=== PATIENT | female | born 1960 | race Caucasian/White ===

== ENCOUNTER 2016-11-13 19:36 | Emergency (ER) | payer OTHER ==
[~2016-11-13] VITALS: Ht 157.5 cm; Wt 49.0 kg
[~2016-11-13 19:36] MED LIST: ALBU8.5H6 INH; CEFU500T PO; CLON1TAB3 PO; FENT1PAT91 TD; LEVO500T59 PO; METR500T PO; OXYC5TAB PO; lipitor
[2016-11-13] MEDS ORDERED: METOCLOPRAMIDE HCL 10 MG/2 ML VIAL. IV ONE (21:15)
[2016-11-13] MEDS ORDERED: diphenhydrAMINE 50 MG/ML VIAL IVP ONE (21:15)
[2016-11-13] MEDS ORDERED: IV NORMAL SALINE 1000ML BAG 1,000 ML IV SCH (21:15)
[2016-11-13] MEDS ORDERED: fentaNYL PF VIAL 100 MCG/2 ML VIAL IV ONE (21:15)
[2016-11-13 21:18] LABS: BASO % 1 % (0-3); EOS % 2 % (0-3); HEMATOCRIT 47.4 % (36.0-47.0); HEMOGLOBIN 15.8 g/dL (12.0-15.5); LYMPH # 2.7 x10^3/uL (1.0-4.8); LYMPH % 42 % (24-48); MEAN CORPUSCULAR HEMOGLOBIN 33 pg (25-35); MEAN CORPUSCULAR HGB CONC 33 g/dL (31-37); MEAN CORPUSCULAR VOLUME 98 fL (79-100); MONO % 4 % (0-9); NEUT % 52 % (31-73); PLATELET COUNT 128 x10^3/uL (140-400); RED BLOOD COUNT 4.84 x10^6/uL (3.50-5.40); RED CELL DISTRIBUTION WIDTH 14.4 % (11.5-14.5); WHITE BLOOD COUNT 6.5 x10^3/uL (4.0-11.0)
[2016-11-13 21:29] LABS: CREATININE 0.9 mg/dL (0.6-1.0); GFR 64.8; POTASSIUM 3.5 mmol/L (3.5-5.1)
[2016-11-13 21:35] LABS: ALBUMIN 3.8 g/dL (3.4-5.0); ALBUMIN/GLOBULIN RATIO 1.1 (1.0-1.7); MAGNESIUM 1.7 mg/dL (1.8-2.4); TOTAL BILIRUBIN 0.4 mg/dL (0.2-1.0); TOTAL PROTEIN 7.2 g/dL (6.4-8.2)
[2016-11-13 21:42] LABS: BILIRUBIN,URINE NEGATIVE (NEG); GLUCOSE,URINE NEGATIVE (NEG); NITRITE,URINE NEGATIVE (NEG); PROTEIN,URINE NEGATIVE (NEG-TRACE)
[2016-11-13 21:52] LABS: BACTERIA,URINE FEW /HPF (0-FEW); RBC,URINE 0 /HPF (0-2); SQUAMOUS EPITHELIAL CELL,UR FEW /LPF
--- NOTE | 2016-11-13 22:41 | RAD ---
CT HEAD INDICATION: Headache COMPARISON: None Available. TECHNIQUE: 5 mm contiguous axial images were obtained from the skull base to the vertex in both bone and soft tissue algorithm. Exposure: One or more of the following individualized dose reduction techniques were utilized for this examination: 1. Automated exposure control 2. Adjustment of the mA and/or kV according to patient size 3. Use of iterative reconstruction technique FINDINGS: No abnormal attenuation within the brain parenchyma. No evidence of acute intracranial hemorrhage. No extra-axial fluid collections. No mass effect or midline shift. Ventricular size is appropriate. Basal cisterns are patent. No fractures identified.Fields-white differentiation is preserved.Globes and orbits are within normal limits. Paranasal sinuses and mastoid air cells are clear. IMPRESSION: Unremarkable CT examination of the head without contrast, as above. Specifically, no evidence of an acute intracranial abnormality. Electronically signed by: Myles Obregon MD (11/13/2016 10:37 PM)
[2016-11-13 22:57] VITALS: BP 120/69
--- NOTE | 2016-11-13 23:38 | PHYS DOC ---
Past Medical History Past Medical History: Arthritis, COPD, High Cholesterol, Lung Disease, Migraines, Pneumonia Additional Past Medical Histor: chronic back and knee pain (chronic pain syndrome), emphysema Past Surgical History: Cholecystectomy, Hysterectomy, Tonsillectomy, Other Additional Past Surgical Histo: R & L knee surgeries Alcohol Use: None Drug Use: None Adult General Chief Complaint Chief Complaint: HEADACHE HPI HPI Patient is a 56 year old female who presents with complaint of headache. Patient states that her symptoms started approximately 2 hours prior to arrival. Patient states that she has history of migraine headaches and states that her symptoms at this time are similar to previous migraine headaches. Patient states that the pain is located throughout her entire scalp and forehead. The patient states that she started to experience left-sided facial and left upper extremity numbness associated with her headache. Patient states that currently this is not present. Patient states that in the past she has had numbness along the right side of her face but never on the left side. The patient called her primary physician, Dr. Salcido, and she was instructed to come to the emergency department for evaluation and possible need for CT imaging. Patient currently rates her pain as 5 out of 10. Patient states that the pain is throbbing. Patient has not taken any medications at home for her symptoms. Patient does admit to light sensitivity and nausea. Review of Systems Review of Systems Constitutional: Denies fever or chills [] Eyes: Light sensitivity, denies change in visual acuity, redness, or eye pain [] HENT: Denies nasal congestion or sore throat [] Respiratory: Denies cough or shortness of breath [] Cardiovascular: Denies chest pain or edema [] GI: Nausea, denies abdominal pain, vomiting, bloody stools or diarrhea [] : Denies dysuria or hematuria [] Musculoskeletal: Denies back pain or joint pain [] Integument: Denies rash or skin lesions [] Neurologic: Headache, left-sided facial and left upper extremity numbness currently resolved [] Current Medications Current Medications Current Medications Medications (Trade) Dose Ordered Sig/Nayeli Start Time Stop Time Status Last Admin Dose Admin Diphenhydramine HCl (Benadryl) 25 mg 1X ONCE 11/13/16 21:15 11/13/16 21:16 DC 11/13/16 21:27 25 MG Fentanyl Citrate (Fentanyl 2ml Vial) 50 mcg 1X ONCE 11/13/16 21:15 11/13/16 21:16 DC 11/13/16 21:28 50 MCG Metoclopramide HCl (Reglan) 10 mg 1X ONCE 11/13/16 21:15 11/13/16 21:16 DC 11/13/16 21:28 10 MG Sodium Chloride 1,000 ml @ 1,000 mls/hr Q1H 11/13/16 21:15 11/13/16 22:14 DC 11/13/16 21:24 1,000 MLS/HR Allergies Allergies Allergies Coded Allergies Type Severity Reaction Last Updated Verified methylprednisolone Allergy Intermediate Hives 12/24/13 Yes morphine Allergy Intermediate hives 12/23/13 Yes ondansetron Allergy Unknown 12/28/13 Yes azithromycin Adverse Reaction Intermediate vomiting 12/23/13 Yes doxycycline Adverse Reaction Intermediate vomiting 12/23/13 Yes Physical Exam Physical Exam Constitutional: Alert, afebrile, appears in mild to moderate discomfort. [] HENT: Normocephalic, atraumatic, bilateral external ears normal, oropharynx moist, no oral exudates, nose normal. [] Eyes: PERRLA, EOMI, conjunctiva normal, no discharge. [] Neck: Normal range of motion, no tenderness, supple, no stridor. [] Cardiovascular:Heart rate regular rhythm, no murmur [] Lungs & Thorax: Bilateral breath sounds clear to auscultation [] Abdomen: Bowel sounds normal, soft, no tenderness, no masses, no pulsatile masses. [] Skin: Warm, dry, no erythema, no rash. [] Back: No tenderness, no CVA tenderness. [] Extremities: No tenderness, no cyanosis, no clubbing, ROM intact, no edema. [] Neurologic: Alert and oriented X 3, normal motor function, normal sensory function, no focal deficits noted. [] Current Patient Data Vital Signs Vital Signs Date Time Temp Pulse Resp B/P (MAP) Pulse Ox O2 Delivery O2 Flow Rate FiO2 11/13/16 22:57 73 19 120/69 (86) 97 11/13/16 21:28 Room Air 11/13/16 19:57 98.5 98.5 Lab Values Laboratory Tests Test 11/13/16 19:55 11/13/16 21:17 White Blood Count 6.5 x10^3/uL (4.0-11.0) Red Blood Count 4.84 x10^6/uL (3.50-5.40) Hemoglobin 15.8 g/dL (12.0-15.5) H Hematocrit 47.4 % (36.0-47.0) H Mean Corpuscular Volume 98 fL (79-100) Mean Corpuscular Hemoglobin 33 pg (25-35) Mean Corpuscular Hemoglobin Concent 33 g/dL (31-37) Red Cell Distribution Width 14.4 % (11.5-14.5) Platelet Count 128 x10^3/uL (140-400) L Neutrophils (%) (Auto) 52 % (31-73) Lymphocytes (%) (Auto) 42 % (24-48) Monocytes (%) (Auto) 4 % (0-9) Eosinophils (%) (Auto) 2 % (0-3) Basophils (%) (Auto) 1 % (0-3) Neutrophils # (Auto) 3.3 x10^3uL (1.8-7.7) Lymphocytes # (Auto) 2.7 x10^3/uL (1.0-4.8) Monocytes # (Auto) 0.3 x10^3/uL (0.0-1.1) Eosinophils # (Auto) 0.1 x10^3/uL (0.0-0.7) Basophils # (Auto) 0.0 x10^3/uL (0.0-0.2) Sodium Level 143 mmol/L (136-145) Potassium Level 3.5 mmol/L (3.5-5.1) Chloride Level 105 mmol/L (98-107) Carbon Dioxide Level 29 mmol/L (21-32) Anion Gap 9 (6-14) Blood Urea Nitrogen 6 mg/dL (7-20) L Creatinine 0.9 mg/dL (0.6-1.0) Estimated GFR (Cockcroft-Gault) 64.8 BUN/Creatinine Ratio 7 (6-20) Glucose Level 121 mg/dL (70-99) H Calcium Level 9.0 mg/dL (8.5-10.1) Magnesium Level 1.7 mg/dL (1.8-2.4) L Total Bilirubin 0.4 mg/dL (0.2-1.0) Aspartate Amino Transferase (AST) 23 U/L (15-37) Alanine Aminotransferase (ALT) 27 U/L (14-59) Alkaline Phosphatase 110 U/L (46-116) Total Protein 7.2 g/dL (6.4-8.2) Albumin 3.8 g/dL (3.4-5.0) Albumin/Globulin Ratio 1.1 (1.0-1.7) Urine Collection Type Unknown Urine Color Dk yellow Urine Clarity Cloudy Urine pH 5.0 Urine Specific Perkins >=1.030 Urine Protein Negative mg/dL (NEG-TRACE) Urine Glucose (UA) Negative mg/dL (NEG) Urine Ketones (Stick) Trace mg/dL (NEG) Urine Blood Negative (NEG) Urine Nitrite Negative (NEG) Urine Bilirubin Negative (NEG) Urine Urobilinogen Dipstick 1.0 mg/dL (0.2 mg/dL) Urine Leukocyte Esterase Moderate (NEG) Urine RBC 0 /HPF (0-2) Urine WBC 1-4 /HPF (0-4) Urine Squamous Epithelial Cells Few /LPF Urine Bacteria Few /HPF (0-FEW) Urine Hyaline Casts Many /HPF Urine Mucus Marked /LPF Laboratory Tests 11/13/16 19:55 Laboratory Tests 11/13/16 19:55 EKG EKG Not performed [] Radiology/Procedures Radiology/Procedures [facility] [address] [place] [address] IMAGING REPORT Signed PATIENT: CARLINE VIVAR ACCOUNT: [id number] : 1960 LOCATION: ER AGE: 56 SEX: F EXAM STATUS: REG ER ORD. PHYSICIAN: MARIUM PARR MD REASON: headache, numbness currently resolved. PROCEDURE: CT HEAD WO CONTRAST CT HEAD INDICATION: Headache COMPARISON: None Available. TECHNIQUE: 5 mm contiguous axial images were obtained from the skull base to the vertex in both bone and soft tissue algorithm. Exposure: One or more of the following individualized dose reduction techniques were utilized for this examination: 1. Automated exposure control 2. Adjustment of the mA and/or kV according to patient size 3. Use of iterative reconstruction technique FINDINGS: No abnormal attenuation within the brain parenchyma. No evidence of acute intracranial hemorrhage. No extra-axial fluid collections. No mass effect or midline shift. Ventricular size is appropriate. Basal cisterns are patent. No fractures identified.Ifelds-white differentiation is preserved.Globes and orbits are within normal limits. Paranasal sinuses and mastoid air cells are clear. IMPRESSION: Unremarkable CT examination of the head without contrast, as above. Specifically, no evidence of an acute intracranial abnormality. Electronically signed by: Myles Obregon MD (11/13/2016 10:37 PM) DICTATED and SIGNED BY: MYLES OBREGON MD DATE: 11/13/162234 CC: JOSUE SALCIDO MD; MARIUM PARR MD ~ [] Course & Med Decision Making Course & Med Decision Making Pertinent Labs and Imaging studies reviewed. (See chart for details) I spoke with patient's primary physician, Dr. Salcido who asked that we contact a head CT on the patient due to her transient facial numbness. This was completed in the emergency department and was interpreted as negative. Patient was started on IV fluids, fentanyl, Reglan, and Benadryl. On reevaluation, patient states her symptoms have resolved and patient is feeling much better at this time. Advise follow-up with Dr. Salcido in 3-4 days for reevaluation and return to emergency department for any worsening symptoms. Patient voiced understanding and in agreement with treatment plan. Dragon Disclaimer Dragon Disclaimer This electronic medical record was generated, in whole or in part, using a voice recognition dictation system. Departure Departure Impression: Primary Impression: Migraine headache Disposition: 01 HOME, SELF-CARE Condition: IMPROVED Referrals: JOSUE SALCIDO MD (PCP) Patient Instructions: Migraine Headache Additional Instructions: Follow-up with your primary doctor in 3-4 days. Return to the emergency department for any worsening symptoms. Problem Qualifiers Primary Impression: Migraine headache Migraine type: unspecified Status migrainosus presence: without status migrainosus Intractability: not intractable Qualified Codes: G43.909 - Migraine, unspecified, not intractable, without status migrainosus MARIUM PARR MD Nov 13, 2016 23:38
== END 2016-11-13 23:45 | disposition home or self-care (01) ==
LOC: ER 19:36
DX: G43.909 Migraine, unspecified, not intractable, without status migrainosus (principal); E78.00 Pure hypercholesterolemia, unspecified; G89.4 Chronic pain syndrome; M19.90 Unspecified osteoarthritis, unspecified site; J43.9 Emphysema, unspecified; Z90.710 Acquired absence of both cervix and uterus; Z90.49 Acquired absence of other specified parts of digestive tract; Z88.1 Allergy status to other antibiotic agents; Z88.5 Allergy status to narcotic agent; Z88.8 Allergy status to other drugs, medicaments and biological substances
CPT/HCPCS: 36415; 70450; 80053; 81001; 83735; 85027; 87086; 96361; 96374; 96375; 99285; J1200; J2765; J3010; J7030

== ENCOUNTER 2017-02-06 00:31 | Emergency (ER) | payer OTHER ==
[~2017-02-06 00:31] MED LIST changes: -OXYC5TAB PO; +OXYC5TAB95 PO
[2017-02-06 00:35] VITALS: BP 126/78
--- NOTE | 2017-02-06 00:45 | PHYS DOC ---
Past Medical History Past Medical History: Arthritis, COPD, High Cholesterol, Lung Disease, Migraines, Pneumonia Additional Past Medical Histor: chronic back and knee pain (chronic pain syndrome), emphysema Past Surgical History: Cholecystectomy, Hysterectomy, Tonsillectomy, Other Additional Past Surgical Histo: R & L knee surgeries Alcohol Use: None Drug Use: None Adult General Chief Complaint Chief Complaint: LOWER EXT PAIN [facility] HPI Patient is a 56 year old female presents to the ED complaining of bilateral foot pain over the last few months. States the pain feels like tingling on the bottom of her feet. Patient denies any history of diabetes. States she takes medicine for high blood pressure and admits to have been told in the past that she has neuropathic pain in her legs and takes gabapentin at home. Patient states the gabapentin does help with her pain. Denies trauma, weakness, difficulty walking, calf pain, recent travel, chest pain, shortness of breath, abdominal pain, nausea/vomiting, dizziness or syncope. Review of Systems Review of Systems Constitutional: Denies fever or chills [] Eyes: Denies change in visual acuity, redness, or eye pain [] HENT: Denies nasal congestion or sore throat [] Respiratory: Denies cough or shortness of breath [] Cardiovascular: No additional information not addressed in HPI [] GI: Denies abdominal pain, nausea, vomiting, bloody stools or diarrhea [] : Denies dysuria or hematuria [] Musculoskeletal: Denies back pain. Complains of bilateral lower leg pain. [] Integument: Denies rash or skin lesions [] Neurologic: Denies headache, focal weakness or sensory changes [] Endocrine: Denies polyuria or polydipsia [] Allergies Allergies Allergies Coded Allergies Type Severity Reaction Last Updated Verified methylprednisolone Allergy Intermediate Hives 12/24/13 Yes morphine Allergy Intermediate hives 12/23/13 Yes ondansetron Allergy Unknown 12/28/13 Yes azithromycin Adverse Reaction Intermediate vomiting 12/23/13 Yes doxycycline Adverse Reaction Intermediate vomiting 12/23/13 Yes Physical Exam Physical Exam Constitutional: Well developed, well nourished, no acute distress, non-toxic appearance. [] HENT: Normocephalic, atraumatic, bilateral external ears normal, oropharynx moist, no oral exudates, nose normal. [] Eyes: PERRLA, EOMI, conjunctiva normal, no discharge. [] Neck: Normal range of motion, no tenderness, supple, no stridor. [] Cardiovascular:Heart rate regular rhythm, no murmur [] Lungs & Thorax: Bilateral breath sounds clear to auscultation [] Abdomen: Bowel sounds normal, soft, no tenderness, no masses, no pulsatile masses. [] Skin: Warm, dry, no erythema, no rash. [] Back: No tenderness, no CVA tenderness. [] Extremities: No tenderness, no cyanosis, no clubbing, ROM intact, no edema. No overlying skin changes. [] Neurologic: Alert and oriented X 3, normal motor function, normal sensory function, no focal deficits noted. [] Psychologic: Affect normal, judgement normal, mood normal. [] Current Patient Data Vital Signs Vital Signs Date Time Temp Pulse Resp B/P (MAP) Pulse Ox O2 Delivery O2 Flow Rate FiO2 02/06/17 00:35 97.9 56 18 126/78 (94) 95 Room Air 97.9 EKG EKG [] Radiology/Procedures Radiology/Procedures [] Course & Med Decision Making Course & Med Decision Making Pertinent Labs and Imaging studies reviewed. (See chart for details) []Normal examination of bilateral lower extremities. FROM, no tenderness, 2+ distal pulses, no calf tenderness, normal cap refill. Patient is able to ambulate without pain. Discussed follow-up with orthopedics for nerve conduction tests and further evaluation this week. Patient states she will see her PCP and get a referral. Provided contact information/education for orthopedics as well. Discussed reasons to return to the ED. Patient and family understand and agrees with plan. Dragon Disclaimer Dragon Disclaimer This electronic medical record was generated, in whole or in part, using a voice recognition dictation system. Departure Departure Impression: Primary Impression: Foot pain Disposition: ADMITTED INPATIENT Condition: STABLE Referrals: JOSUE KIRKLAND MD (PCP) DIANE SINGER MD Patient Instructions: Pain, Neuropathic ROSY CASTILLO Feb 06, 2017 00:45
== END 2017-02-06 00:52 | disposition other institution (70) ==
LOC: ER 00:31
DX: M79.671 Pain in right foot (principal); M79.672 Pain in left foot; E78.00 Pure hypercholesterolemia, unspecified; G89.4 Chronic pain syndrome; J43.9 Emphysema, unspecified; G43.909 Migraine, unspecified, not intractable, without status migrainosus; M19.90 Unspecified osteoarthritis, unspecified site; Z90.49 Acquired absence of other specified parts of digestive tract; Z90.710 Acquired absence of both cervix and uterus; Z98.890 Other specified postprocedural states; Z88.1 Allergy status to other antibiotic agents; Z88.5 Allergy status to narcotic agent; Z88.8 Allergy status to other drugs, medicaments and biological substances
CPT/HCPCS: 99285-25

== ENCOUNTER 2017-02-24 13:14 | Emergency (ER) | payer OTHER ==
[~2017-02-24] VITALS: Ht 157.5 cm; Wt 49.0 kg
--- NOTE | 2017-02-24 14:51 | PHYS DOC ---
Past Medical History Past Medical History: Arthritis, COPD, High Cholesterol, Lung Disease, Migraines, Pneumonia Additional Past Medical Histor: chronic back and knee pain (chronic pain syndrome), emphysema Past Surgical History: Cholecystectomy, Hysterectomy, Tonsillectomy, Other Additional Past Surgical Histo: R & L knee surgeries Alcohol Use: None Drug Use: None Adult General Chief Complaint Chief Complaint: MECHANICAL FALL HPI HPI Patient is a 56 year old female who presents after a fall last night. The patient states that she was standing on a stage, she wasn't aware how close to the edge she was, she backed off the stage and fell onto a wood floor. The stage was 2-3 feet high. She's not sure how she landed. She denies head injury. She primarily complains of pain in the left wrist and pain of the right lower leg just below the right knee. Her back is sore but only about a 3/10. Patient takes daily opiates for chronic pain. She has "chronic Lyme" and also knee and back pain. She has a fentanyl patch 75 g and she also has a prescription for oxycodone 30 mg every 12 hours. She took one last night and one this morning. They're not helping. PCP Dr. Luz Kirkland Review of Systems Review of Systems Constitutional: Denies fever or chills [] Respiratory: She has COPD and her cough is baseline Cardiovascular: Denies chest pain GI: Denies vomiting Musculoskeletal: As in history of present illness Integument: Denies rash or skin lesions [] Neurologic: Denies headache Allergies Allergies Allergies Coded Allergies Type Severity Reaction Last Updated Verified methylprednisolone Allergy Intermediate Hives 12/24/13 Yes morphine Allergy Intermediate hives 12/23/13 Yes ondansetron Allergy Unknown 12/28/13 Yes azithromycin Adverse Reaction Intermediate vomiting 12/23/13 Yes doxycycline Adverse Reaction Intermediate vomiting 12/23/13 Yes Physical Exam Physical Exam Constitutional: Well developed, well nourished, alert, mentating normally HENT: Normocephalic, atraumatic, nose normal. [] Eyes: conjunctiva normal, no discharge. [] Neck: Normal range of motion, no tenderness Skin: Warm, dry, no erythema, no rash. [] Back: No tenderness, no skin abnormalities noted Extremities: Left upper extremity: Clavicle, shoulder, upper arm, elbow are unremarkable. Wrist has mild generalized swelling and tenderness over the dorsal aspect of the wrist and the dorsal aspect of the proximal hand. Fingers are without swelling or deformity. Right upper extremity unremarkable. Left lower extremity unremarkable. Right lower extremity: Knee joint is without swelling or tenderness, full range of motion. There is mild swelling and tenderness pretibial just below the knee. Quadriceps patellar tendon is intact. Ankle and foot are unremarkable. Neurologic: Alert and oriented X 3, normal motor function, no focal deficits noted. [] Current Patient Data Vital Signs Vital Signs Date Time Temp Pulse Resp B/P (MAP) Pulse Ox O2 Delivery O2 Flow Rate FiO2 02/24/17 15:00 63 18 91 02/24/17 14:16 98.3 126/78 (94) Room Air 98.3 EKG EKG [] Radiology/Procedures Radiology/Procedures Two-view x-ray of the right tib-fib read by me. No bony abnormality. Three-view x-ray of the left wrist read by me. No bony abnormality.[] Course & Med Decision Making Course & Med Decision Making Pertinent Labs and Imaging studies reviewed. (See chart for details) 56-year-old female who had a fall last night and is having left wrist and right lower leg pain today. X-rays negative for bony abnormality. She was given a Velcro wrist splint for comfort. She already has pain relievers at home. See instructions for plan. [] Dragon Disclaimer Dragon Disclaimer This electronic medical record was generated, in whole or in part, using a voice recognition dictation system. Departure Departure Impression: Primary Impression: Contusion of left wrist, initial encounter Additional Impression: Contusion of right lower leg, initial encounter Disposition: 01 HOME, SELF-CARE Condition: STABLE Referrals: JOSUE KIRKLAND MD (PCP) Patient Instructions: Contusion, [id number] Additional Instructions: Today, x-rays of your left wrist and hand, and right knee and lower leg, do not show any broken bones. Ice 15-20 minutes out of every 1-2 hours as needed for swelling and pain. You may wear the wrist splint as needed for pain, once you are getting better you can stop wearing a. If you're still having pain in one to 2 weeks, follow-up with your primary care doctor for recheck. Problem Qualifiers JACQUIE DENTON MD Feb 24, 2017 14:51
--- NOTE | 2017-02-24 14:56 | RAD ---
Left wrist, 3 views, 02/24/2017: History: Fall, pain and swelling No fracture or dislocation is identified. There is mild soft tissue swelling. IMPRESSION: No acute bony abnormality is detected.
--- NOTE | 2017-02-24 14:59 | RAD ---
Right tibia and fibula, 2 views, 02/24/2017: History: Fall, pain and swelling There appears to be mild patchy bony demineralization. No fracture is identified. The soft tissues are unremarkable. IMPRESSION: No acute bony abnormality is detected.
[2017-02-24 15:00] VITALS: BP 113/66
== END 2017-02-24 15:09 | disposition home or self-care (01) ==
LOC: ER 13:14
DX: S60.212A Contusion of left wrist, initial encounter (principal); S80.11XA Contusion of right lower leg, initial encounter; E78.00 Pure hypercholesterolemia, unspecified; G43.909 Migraine, unspecified, not intractable, without status migrainosus; M19.90 Unspecified osteoarthritis, unspecified site; G89.4 Chronic pain syndrome; J43.9 Emphysema, unspecified; Z90.710 Acquired absence of both cervix and uterus; Z90.49 Acquired absence of other specified parts of digestive tract; W17.89XA Other fall from one level to another, initial encounter; Y93.89 Activity, other specified; Y99.8 Other external cause status; Y92.89 Other specified places as the place of occurrence of the external cause
CPT/HCPCS: 29125; 73110; 73590; 99284-25

== ENCOUNTER → 2018-06-22 | Outpatient (CLI) | payer OTHER ==
[2017-05-24 11:00] VITALS: BP 99/59
[~2018-06-22] MED LIST changes: +ATOR10TA60 PO; +CLON1TAB11 PO; -CLON1TAB3 PO; +CYCL10TA2 PO; +LOPE2CAP PO; +OXYC5TAB4 PO; -OXYC5TAB95 PO
--- NOTE | 2018-06-22 15:11 | KCIC ---
MR of the right shoulder HISTORY: Right shoulder pain chronically, prior surgery x2. COMPARISON: March 08, 2016. FINDINGS: There apparently has been outer clavicle resection and subacromial decompression since previous exam. Mild thickening and signal within the rotator cuff compatible with tendinosis. No measurable rotator cuff rupture or retraction. Trace subdeltoid bursal effusion. No significant joint effusion. Mild degenerative changes at the glenohumeral joint. Previously seen signal at the base of the superior labrum is less well seen. Mild signal at the base of the posterior inferior labrum is less well seen today. No definite new labral tear is suggested on today's exam. Biceps tendon is intact. No bone lesion. No acute fracture. No acute soft tissue abnormality. IMPRESSION: 1. Rotator cuff tendinosis, no measurable tear. 2. Previously seen areas of labral signal or less apparent on today's exam. Electronically signed by: Vipin Price MD (06/22/2018 3:07 PM) [id number]
== END | disposition home or self-care (01) ==
LOC: KCIC MRI 13:02
PROVIDERS: ATTEND Orthopaedic Surgery
DX: M75.81 Other shoulder lesions, right shoulder (principal)
CPT/HCPCS: 73221

== ENCOUNTER → 2019-01-02 | Outpatient (CLI) | payer MEDICAID ==
[2017-05-24 11:00] VITALS: BP 99/59
[~2019-01-02] MED LIST changes: -CLON1TAB11 PO; +CLONAZEPAM1 MG PO; +CONTRAST GIVEN. MC PRN; +IOHEXOL 240 MG/ML 50ML VIAL. PO ONE; +IOHEXOL 300 MG/ML 100ML VIAL. IV ONE
--- NOTE | 2019-01-02 16:31 | RAD ---
CHEST PA LATERAL CLINICAL INDICATION: Weight loss. COMPARISON: 05/23 FINDINGS: Heart is normal in size. Lungs are clear. No pneumothorax or pleural effusion. Visualized bony thorax within normal limits. IMPRESSION: No acute pulmonary process. Electronically signed by: Deuce Berrios DO (01/02/2019 4:28 PM) [facility]
--- NOTE | 2019-01-03 07:56 | RAD ---
PQRS Compliance statement: One or more of the following individualized dose reduction techniques were utilized for this examination: 1. Automated exposure control. 2. Adjustment of the mA and/or kV according to patient size. 3. Use of iterative reconstruction technique. Indication:Weight loss abdominal pain. TECHNIQUE: CT abdomen and pelvis with IV contrast with multiplanar reformats. COMPARISON: None FINDINGS: Heart is normal in size. No pericardial or pleural effusion. Clear lung bases. Liver, spleen, pancreas, adrenals within normal limits. Status post cholecystectomy. Dilated CBD likely secondary to reservoir effect from cholecystectomy. No nephrolithiasis or hydronephrosis. No enlarged retroperitoneal or pelvic adenopathy. Moderate scattered atherosclerotic plaque is seen in the abdominal aorta and bilateral iliac arteries. No free pelvic fluid or ascites. No enlarged retroperitoneal or pelvic adenopathy. No bowel obstruction. Appendix is not visualized. No right lower quadrant inflammatory changes. Status post hysterectomy. Urinary bladder demonstrates no radiopaque stones. No pneumoperitoneum. No suspicious bony lesion. IMPRESSION: No acute findings. Electronically signed by: Deuce Berrios DO (01/03/2019 7:53 AM) [facility]
== END | disposition home or self-care (01) ==
LOC: CT 15:33
PROVIDERS: ATTEND Internal Medicine Gastroenterology
DX: I70.0 Atherosclerosis of aorta (principal); I70.8 Atherosclerosis of other arteries; Z90.49 Acquired absence of other specified parts of digestive tract; Z90.710 Acquired absence of both cervix and uterus; Z87.891 Personal history of nicotine dependence
CPT/HCPCS: 71046; 74177; Q9966; Q9967

== ENCOUNTER → 2019-01-16 | Outpatient (CLI) | payer MEDICAID ==
[2017-05-24 11:00] VITALS: BP 99/59
[~2019-01-16] MED LIST changes: -IOHEXOL 240 MG/ML 50ML VIAL. PO ONE
--- NOTE | 2019-01-17 08:35 | KCIC ---
CLINICAL HISTORY: . COMPARISON: none TECHNIQUE:CT angiography of the abdomen was performed following the administration of IV contrast. Axial, coronal and sagittal reformatted images were obtained. 3-D, MIP images were generated. PQRS compliance statement - One or more of the following individualized dose reduction techniques were utilized for this study: 1. Automated exposure control 2. Adjustment of the mA and/or kV according to patient size 3. Use of iterative reconstruction technique FINDINGS: CT ANGIOGRAM: Aorta: Dense atherosclerotic calcifications with atheromatous plaque are seen intermittently throughout the aorta with intermittent luminal narrowing measuring <30 percent. Celiac axis: The celiac trunk is widely patent with intermittent calcifications of the origin. The origins of the main branches of the celiac trunk are also widely patent at the origin. The visualized segments splenic, hepatic and left gastric arteries are grossly patent as well. SMA : Widely patent at the origin and throughout the proximal course. Of note the angle between the SMA and aorta measures approximately 7-8 degrees and the distance between the 6 mm and the distance between the duodenum SMA measures approximately 9 mm. No abnormal dilation of the proximal duodenum or stomach. EPI : Although there is atheromatous plaque at the origin of the EPI from the aorta, no significant narrowing of the origin of the EPI.. Single bilateral renal arteries are widely patent at the origins. Intermittent atherosclerotic calcifications and atheromatous plaque is seen throughout the common iliac arteries without high-grade luminal narrowing. ADDITIONAL FINDINGS IN THE ABDOMEN AND PELVIS Lower chest: Emphysematous changes are seen in the lung bases. Several solid and groundglass nodules are seen measuring 3-4 mm, new compared to prior CT 01/02/2019. Evaluation of the abdomen limited given arterial phase of contrast. Within these constraints: Contrast is seen refluxing into the hepatic veins which may be seen with exuberant contrast injection or right-sided cardiac dysfunction. A 7 mm hypodense left hepatic lobe lesion is seen adjacent to the falciform ligament, too small to accurately characterize. Calcified granuloma in the right hepatic lobe. Spleen is unremarkable. Mild nodular thickening of left adrenal gland. Right adrenal gland is unremarkable. There has been a cholecystectomy. Biliary duct is somewhat greater than expected for postcholecystectomy state measuring 13 mm in diameter, possibly from reservoir effect although distal obstruction is not excluded. This can be correlated with lab values and if further imaging is required MRCP would provide additional details. A 4 mm hypodense lesion is seen within the pancreatic body/tail (series 6 image 56) there is diffuse prominence of the pancreatic duct to the level of the pancreatic head. Symmetric nephrograms. No focal renal lesion. No hydronephrosis. No hydroureter. No abdominal ascites. Evaluation for abdominal lymphadenopathy is limited given lack of visceral fat. Within these constraints no definite abnormal abdominal lymph nodes are seen. Moderate colonic stool content is seen. No small or large bowel dilatation. No evidence for bowel obstruction. Diffusely decreased bone mineral density. Multilevel degenerative changes, most prominent at L5-S1. Evaluation of the osseous structures limited given MIP reconstructions. IMPRESSION: 1. Atherosclerotic disease described above without high-grade stenosis. 2. 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 This can be correlated with clinical symptomatology if any. 3. Dilation of the common bile duct may be related to reservoir effect given cholecystectomy. However this is slightly greater than expected and can be correlated with lab values and if further imaging is required MRI/MRCP would provide additional details. 4. Mild prominence of pancreatic duct from the level of the pancreatic head to the tail with mild atrophy is nonspecific. Underlying mass is not excluded and can be further assessed by MRI. A 4 mm pancreatic body/tail lesion can also be further assessed by MRI Electronically signed by: Rasta Moses MD (01/17/2019 8:33 AM) [facility]
== END | disposition home or self-care (01) ==
LOC: KCIC CT 14:36
PROVIDERS: ATTEND Internal Medicine Gastroenterology
DX: I70.8 Atherosclerosis of other arteries (principal); K83.8 Other specified diseases of biliary tract; K86.89 Other specified diseases of pancreas; J43.8 Other emphysema; Z90.49 Acquired absence of other specified parts of digestive tract
CPT/HCPCS: 74175; Q9967

== ENCOUNTER → 2019-03-13 | Outpatient (CLI) | payer MEDICAID ==
[2017-05-24 11:00] VITALS: BP 99/59
[~2019-03-13] MED LIST changes: -CONTRAST GIVEN. MC PRN; -IOHEXOL 300 MG/ML 100ML VIAL. IV ONE
--- NOTE | 2019-03-14 12:29 | KCIC ---
MRI ABDOMEN W/O CONTRAST: MRCP Clinical Indication: Abdominal pain. Comparison: CT abdomen and pelvis with contrast January 02, 2019. Technique: Multiplanar multiple pulse sequence imaging of the abdomen was performed, including T2 thin slab images through the biliary tree, without contrast. 3-D volume rendering images constructed to better evaluate the biliary tree anatomy. Findings: Cholecystectomy. Mild intrahepatic duct dilation. The extra hepatic duct is dilated measuring up to 13 mm. The distal common bile duct abruptly but smoothly narrows as seen on image 16 of series 12. No filling defect in the extrahepatic duct is seen. The pancreatic duct in the pancreas body is mildly dilated measuring up to 4 mm. The pancreatic duct in the tail and head of the pancreas is normal caliber. No cyst of the pancreas parenchyma is identified. In and out of phase and diffusion weighted sequences are unremarkable. Small right hepatic lobe cyst. Spleen, adrenal glands, and kidneys are unremarkable. IMPRESSION: 1. The extrahepatic duct is dilated. There is no choledocholithiasis. Distally the extrahepatic duct abruptly but smoothly narrows. Cannot exclude a benign stricture. 2. Pancreatic duct in the pancreas body is mildly dilated, otherwise normal caliber. No pancreatic cysts are identified. Electronically signed by: Roc Young MD (03/14/2019 12:26 PM) [id number]
== END | disposition home or self-care (01) ==
LOC: KCIC MRI 08:29
PROVIDERS: ATTEND Surgery
DX: K86.89 Other specified diseases of pancreas (principal); K76.89 Other specified diseases of liver; Z90.49 Acquired absence of other specified parts of digestive tract
CPT/HCPCS: 74181